=== PATIENT | female | born 1935 | race Caucasian/White ===

== ENCOUNTER 2021-06-21 15:59 | Emergency (ER) | payer MEDICARE, OTHER ==
[~2021-06-21] VITALS: Ht 162.6 cm; Wt 81.6 kg
--- NOTE | 2021-06-21 16:03 | ED General ---
General Stated Complaint: ELEV BP History of Present Illness Date Seen by Provider: Jun 21, 2021 Time Seen by Provider: 16:03 Initial Comments 85-year-old female brought in with elevated blood pressure and feeling of confusion. Patient reports that around noon she is started to get out of bed confused and having concentration issues. Patient family reports that they checked her blood pressure is elevated over 200. She denies any cough, fever, chills. She does have a mild headache. She reports that she takes blood pressu re medication and took them this morning as prescribed. Patient also reports she has a history of frequent urinary tract infections. Patient's confusion is just kind of difficulty with short-term memory Allergies and Home Medications Allergies Coded Allergies: No Known Drug Allergies (Unverified , 06/21/21) Patient Home Medication List Home Medication List Reviewed: Yes Cephalexin (Cephalexin) 500 Mg Tablet, 500 MG PO QID Prescribed by: KEILA STEARNS on 06/21/21 172 Ondansetron (Ondansetron Odt) 4 Mg Tab.rapdis, 4 MG PO Q6H PRN for NAUSEA/VOMITING Prescribed by: KEILA STEARNS on 06/21/21 172 Prednisone (Prednisone) 20 Mg Tab, 40 MG PO DAILY Prescribed by: KEILA STEARNS on 06/21/21 1729 Review of Systems Review of Systems Constitutional: see HPI; No chills, No fever EENTM: no symptoms reported Respiratory: no symptoms reported Cardiovascular: no symptoms reported Gastrointestinal: no symptoms reported Genitourinary: no symptoms reported Musculoskeletal: no symptoms reported Psychiatric/Neurological: See HPI Hematologic/Lymphatic: No Symptoms Reported Immunological/Allergic: no symptoms reported Physical Exam Vital Signs Vital Signs - First Documented 06/21/21 16:05 Temp 36.8 Pulse 86 Resp 18 B/P (MAP) 242/90 (140) Pulse Ox 97 O2 Delivery Room Air Capillary Refill : Height, Weight, BMI Height: '" Weight: lbs. oz. kg; BMI Method: General Appearance: No Apparent Distress, WD/WN Eyes: Bilateral Eye Normal Inspection, Bilateral Eye PERRL HEENT: Moist Mucous Membranes Neck: Non Tender, Supple Respiratory: Lungs Clear, Normal Breath Sounds, No Accessory Muscle Use Cardiovascular: Regular Rate, Rhythm, No Edema Gastrointestinal: Non Tender, Soft Extremity: Normal Capillary Refill, Normal Inspection Neurologic/Psychiatric: Alert, Oriented x3, No Motor/Sensory Deficits, Normal Mood/Affect, political reporter II-XII Norm as Tested, Other (pt answered that "she was at home, yr 2021, month may" ) Skin: Normal Color, Warm/Dry Progress/Results/Core Measures Suspected Sepsis SIRS Temperature: Pulse: Respiratory Rate: Laboratory Tests 06/21/21 16:15: White Blood Count 10.6 Blood Pressure / Mean: Laboratory Tests 06/21/21 16:15: Creatinine 0.79, INR Comment 2.2H, Platelet Count 338, Total Bilirubin 0.3 Results/Orders Lab Results Laboratory Tests Test 06/21/21 16:15 06/21/21 16:23 Range/Units White Blood Count 10.6 4.3-11.0 10^3/uL Red Blood Count 4.64 3.80-5.11 10^6/uL Hemoglobin 13.9 11.5-16.0 g/dL Hematocrit 42 35-52 % Mean Corpuscular Volume 90 80-99 fL Mean Corpuscular Hemoglobin 30 25-34 pg Mean Corpuscular Hemoglobin Concent 33 32-36 g/dL Red Cell Distribution Width 12.8 10.0-14.5 % Platelet Count 338 130-400 10^3/uL Mean Platelet Volume 10.2 9.0-12.2 fL Immature Granulocyte % (Auto) 2 % Neutrophils (%) (Auto) 65 42-75 % Lymphocytes (%) (Auto) 21 12-44 % Monocytes (%) (Auto) 8 0-12 % Eosinophils (%) (Auto) 3 0-10 % Basophils (%) (Auto) 1 0-10 % Neutrophils # (Auto) 6.9 1.8-7.8 X 10^3 Lymphocytes # (Auto) 2.2 1.0-4.0 X 10^3 Monocytes # (Auto) 0.9 0.0-1.0 X 10^3 Eosinophils # (Auto) 0.3 0.0-0.3 10^3/uL Basophils # (Auto) 0.1 0.0-0.1 10^3/uL Immature Granulocyte # (Auto) 0.2 H 0.0-0.1 10^3/uL Erythrocyte Sedimentation Rate 50 H 0-30 MM/HR Prothrombin Time 24.8 H 12.2-14.7 SEC INR Comment 2.2 H 0.8-1.4 Activated Partial Thromboplast Time 59 H 24-35 SEC Sodium Level 133 L 135-145 MMOL/L Potassium Level 5.0 3.6-5.0 MMOL/L Chloride Level 98 98-107 MMOL/L Carbon Dioxide Level 24 21-32 MMOL/L Anion Gap 11 5-14 MMOL/L Blood Urea Nitrogen 20 H 7-18 MG/DL Creatinine 0.79 0.60-1.30 MG/DL Estimat Glomerular Filtration Rate 69 BUN/Creatinine Ratio 25 Glucose Level 176 H 70-105 MG/DL Calcium Level 10.1 8.5-10.1 MG/DL Corrected Calcium 9.8 8.5-10.1 MG/DL Magnesium Level 1.6 1.6-2.4 MG/DL Total Bilirubin 0.3 0.1-1.0 MG/DL Aspartate Amino Transf (AST/SGOT) 19 5-34 U/L Alanine Aminotransferase (ALT/SGPT) 17 0-55 U/L Alkaline Phosphatase 54 40-136 U/L Total Protein 7.5 6.4-8.2 GM/DL Albumin 4.4 3.2-4.5 GM/DL Urine Color YELLOW Urine Clarity CLOUDY Urine pH 6.0 5-9 Urine Specific [place] 1.010 L 1.016-1.022 Urine Protein NEGATIVE NEGATIVE Urine Glucose (UA) NEGATIVE NEGATIVE Urine Ketones NEGATIVE NEGATIVE Urine Nitrite POSITIVE H NEGATIVE Urine Bilirubin NEGATIVE NEGATIVE Urine Urobilinogen 0.2 < = 1.0 MG/DL Urine Leukocyte Esterase 2+ H NEGATIVE Urine RBC (Auto) NEGATIVE NEGATIVE Urine RBC NONE /HPF Urine WBC 50-100 H /HPF Urine Squamous Epithelial Cells 10-25 H /HPF Urine Crystals NONE /LPF Urine Bacteria MODERATE H /HPF Urine Casts NONE /LPF Urine Mucus NEGATIVE /LPF Urine Culture Indicated YES My Orders Orders - STEARNS,KEILA L DO Ct Head Wo-R/O Stroke (06/21/21 16:09) Cbc With Automated Diff (06/21/21 16:09) Comprehensive Metabolic Panel (06/21/21 16:09) Magnesium (06/21/21 16:09) Protime With Inr (06/21/21 16:09) Partial Thromboplastin Time (06/21/21 16:09) Ua Culture If Indicated (06/21/21 16:09) Erythrocyte Sedimentation Rate (06/21/21 16:09) Ekg Tracing (06/21/21 16:09) Monitor-Rhythm Ecg Trace Only (06/21/21 16:09) Chest 1 View Ap/Pa Only (06/21/21 16:09) Urine Culture (06/21/21 16:23) Hs C Reactive Protein (06/21/21 16:15) Ondansetron Injection (Zofran Injectio (06/21/21 17:15) Labetalol Injection (Normodyne Injection (06/21/21 17:15) Ondansetron Injection (Zofran Injectio (06/21/21 17:06) Ketorolac Injection (Toradol Injection) (06/21/21 17:17) Prednisone Tablet (Deltasone Tablet) (06/21/21 17:30) Ceftriaxone (Rocephin) (06/21/21 17:30) Medications Given in ED Current Medications Medications Dose Ordered Sig/Jatin Route Start Time Stop Time Status Last Admin Dose Admin Labetalol HCl 20 mg ONCE ONCE IV 06/21/21 17:15 06/21/21 17:16 DC 06/21/21 17:20 20 MG Ondansetron HCl 4 mg ONCE ONCE IVP 06/21/21 17:15 06/21/21 17:16 DC 06/21/21 17:09 4 MG Vital Signs/I&O 06/21/21 16:05 Temp 36.8 Pulse 86 Resp 18 B/P (MAP) 242/90 (140) Pulse Ox 97 O2 Delivery Room Air Capillary Refill : Progress Note : Progress Note Patient with multiple different etiologies that could be causing her headache and high blood pressure. She could have labile blood pressure that is elevated causing a headache and nausea vomiting. Patient also has headache on the left side with some mild temporal pain with an ESR of 50. She may have early giant cell arteritis. Patient also has a urine that is suspicious for a possible UTI which could contribute to the headache or not feeling well which could result in the high blood pressure. I will treat her with an antibiotic, prednisone and give her nausea medication. I asked her to follow-up with her primary care provider in 2 to 3 days for recheck to see how her symptoms are doing and further outpatient evaluation as needed. Patient was stable and discharged home. ECG Initial ECG Impression Date: Jun 21, 2021 Initial ECG Impression Time: 16:29 Initial ECG Rate: 81 Initial ECG Rhythm: Normal Sinus Initial ECG Intervals: MO (242) Initial ECG Impression: Nonspecific Changes Initial ECG Comparisson: No Previous ECG Available Comment sinus rhyhm, prolonged MO, no acute st elevation or changes. Diagnostic Imaging Diagonstic Imaging: CT Plain Films/CT/US/NM/MRI: head Comments Date of Exam:06/21/21 CT HEAD WO-R/O STROKE PROCEDURE: CT head w/o r/o stroke. TECHNIQUE: Multiple contiguous axial images were obtained through the brain without the use of intravenous contrast. Auto Exposure Controls were utilized during the CT exam to meet ALARA standards for radiation dose reduction. INDICATION: Headache. Confusion. Altered mental status. COMPARISON: None. FINDINGS: Moderate generalized parenchymal volume loss is age appropriate. No intracranial hemorrhage, mass effect, hydrocephalus or extra-axial fluid collection. No CT evidence of a territorial infarction. Osseous structures are intact. Visualized paranasal sinuses and mastoids are unremarkable. IMPRESSION: No acute intracranial CT finding. Reviewed: Reviewed by Me, Reviewed/Discussed Diagonstic Imaging: Xray Plain Films/CT/US/NM/MRI: chest Comments Date of Exam:06/21/21 CHEST 1 VIEW AP/PA ONLY INDICATION: Hypertension, confusion. COMPARISON: None available. TECHNIQUE: Single radiograph of the chest dated June 21, 2021. FINDINGS: The cardiac silhouette is within normal limits in size. No significant pulmonary vascular congestion. Senescent changes of the lungs are identified without additional focal pulmonary opacity. No pleural effusion. No pneumothorax. No acute osseous abnormality. IMPRESSION: Senescent changes of the lungs without superimposed acute cardiopulmonary abnormality. Reviewed: Reviewed by Me, Reviewed/Discussed Departure Impression Primary Impression: Elevated erythrocyte sedimentation rate Additional Impressions: Hypertension Qualified Codes: I10 - Essential (primary) hypertension Urinary tract infection Qualified Codes: N30.00 - Acute cystitis without hematuria Disposition: HOME, SELF-CARE Condition: Stable Departure-Patient Inst. Referrals: KARTHIK AGUIRRE MD (PCP/Family) Primary Care Physician Patient Instructions: Erythrocyte Sedimentation Rate, High Blood Pressure in Adults, Urinary Tract Infection, Adult ED Add. Discharge Instructions: Please follow-up with your primary care provider in 2 to 3 days for recheck of your symptoms. Start your steroid tomorrow morning Start your antibiotics today. Scripts Prednisone (Prednisone) 20 Mg Tab 40 MG PO DAILY, #6 TAB 0 Refills Prov: KEILA STEARNS DO 06/21/21 Ondansetron (Ondansetron Odt) 4 Mg Tab.rapdis 4 MG PO Q6H PRN for NAUSEA/VOMITING, #20 TAB 0 Refills Prov: KEILA STEARNS DO 06/21/21 Cephalexin (Cephalexin) 500 Mg Tablet 500 MG PO QID, #20 TAB 0 Refills Prov: KEILA STEARNS DO 06/21/21 KEILA STEARNS DO Jun 21, 2021 16:03
--- OUTSIDE RECORDS SUMMARY | 2021-06-21 16:04 | XMS REPORT | Clinical Summary ---
Author Author [facility] Organization [facility] Address Unknown Phone Unavailable Care Team Providers Care [employer] Name Role Phone Tyler Kumar MD PCP Allergies No Known Active Allergies Medications End Date Status Medication Sig Dispensed Refills Start Date Active metformin (GLUCOPHAGE) Take 500 mg 0 500 mg tablet by mouth 2 (two) times a day with meals. Active omeprazole (PRILOSEC) 20 Take 20 mg by 0 MG capsule mouth daily. Active warfarin (COUMADIN) 5 MG Take 5 mg by 0 tablet mouth. Taken Tuesday, Tuesday, , and Tuesday Active warfarin (COUMADIN) 2.5 Take 2.5 mg 0 MG tablet by mouth. Taken Tuesday, Tuesday, and Tuesday Active spironolactone Take 25 mg by 0 (ALDACTONE) 25 MG tablet mouth daily. Active flecainide (TAMBOCOR) 50 Take 50 mg by 0 MG tablet mouth 2 (two) times a day. Active losartan (COZAAR) 100 MG Take 100 mg 0 tablet by mouth daily. Active metoprolol succinate Take 25 mg by 0 (TOPROL-XL) 25 MG 24 hr mouth daily. tablet Active Problems Problem Noted Date Essential hypertension Last Assessment & Plan: Formatting of this note might be differ ent from the original. BP low Holding all PO meds in setting of GI bl eed Atrial fibrillation Last Assessment & Plan: Formatting of this note might be differ ent from the original. HR controlled Holding warfarin Type 2 diabetes mellitus without compli cation, without long-term current use of insulin Last Assessment & Plan: Formatting of this note might be differ ent from the original. Hold PO meds SSI for now Hematochezia Last Assessment & Plan: Formatting of this note might be differ ent from the original. BRBPR x [address] abd/pelv with significant colonic di verticulosis most predominant within the sigmoid colon. There is contrast vi sualized within the proximal sigmoid colon/descending colon consistent with GI bleed. INR 3.6. s/p vit K in the ED. May need FFP if co ntinues to bleed Hgb 8.9, unknown baseline Will transfuse 1 unit pRBC due to low B P and symptoms GI consulted, plan for urgent prep and colonoscopy IVF Monitor in the ICU If continues to bleed, will need tagged RBC scan and IR consult Social History Date Tobacco Use Types Packs/Day Years Used Never Smoker Smokeless Tobacco: Never Used Comments Alcohol Use Standard Drinks/Week Not Currently 0 (1 standard drink = 0.6 o z pure alcohol) Food Insecurity Answer Date Recorded Within the past 12 months, you worried that your Never matt e 09/29/2019 food would run out before you got money to buy more. Within the past 12 months, the food you bought Never true 09/29/2019 just didn't last and you didn't have mo kb to get more. Transportation Needs Answer Date Recorded In the past 12 months, has lack of transportation No 09/29/2019 kept you from medical appointments or f rom getting medications? In the past 12 months, has lack of transportation No 09/29/2019 kept you from meetings, work, or gettin g things needed for daily living? Sex Assigned at Date Recorded Not on file Last Filed Vital Signs Reading Time Taken Comments Vital Sign 162/43 10/01/2019 11:18 AM [employer] Blood Pressure 68 10/01/2019 11:18 AM [employer] Pulse 36.7 C (98.1 F) 10/01/2019 11:18 AM [employer] Temperature 18 10/01/2019 11:18 AM [employer] Respiratory Rate 98% 10/01/2019 11:18 AM [employer] Oxygen Saturation - - Inhaled Oxygen Concentration 84.5 kg (186 lb 4.8 oz) 10/01/2019 4:04 AM [employer] Weight 162.6 cm (5' 4.02") 09/28/2019 1:31 PM [employer] Height 31.96 09/28/2019 1:31 PM [employer] Body Mass Index Plan of Treatment Health Maintenance Due Date Last Done Comments Advance Directive has 1936 been filed Diabetes Mellitus 1936 Hemoglobin A1C Diabetes Mellitus 1936 Ophthalmology Exam Lipid Screening 1936 Td/Tdap# 1936 Pneumococcal Vaccine: 65+ 1942 01/03/2015 Years (1 of 2 - PPSV23) Diabetes Mellitus Foot 1946 Exam COVID-19 Vaccine (1) 1948 Zoster Vaccine# (1 of 2) 1986 Advance Directive 2001 Conversation Osteoporosis Screening 2001 Patient Needs Advance 2001 Directive Fall Risk Assessment # 10/01/2020 10/01/2019 Influenza Vaccine (#1) 2021 08/22/2019, 07/10/2014, 07/12/2013, Additional history exists Results Not on filefrom Last 3 Months Advance Directives For more information, please contact: [phone] Patient [employer] Explanation Type Date Recorded Health Care Directive Date Inactivated Comments Code Status Date Activated 10/01/2019 2:54 PM DNR 09/28/2019 9:10 AM
[2021-06-21 16:28] LABS: BASOPHILS % (AUTO) 1 % (0-10); EOSINOPHILS # (AUTO) 0.3 10^3/uL (0.0-0.3); EOSINOPHILS % (AUTO) 3 % (0-10); HEMATOCRIT 42 % (35-52); HEMOGLOBIN 13.9 g/dL (11.5-16.0); LYMPHOCYTES # (AUTO) 2.2 X 10^3 (1.0-4.0); LYMPHOCYTES % (AUTO) 21 % (12-44); MEAN CORPUSCULAR HEMOGLOBIN 30 pg (25-34); MEAN CORPUSCULAR HGB CONC 33 g/dL (32-36); MEAN CORPUSCULAR VOLUME 90 fL (80-99); MEAN PLATELET VOLUME 10.2 fL (9.0-12.2); MONOCYTES # (AUTO) 0.9 X 10^3 (0.0-1.0); MONOCYTES % (AUTO) 8 % (0-12); NEUTROPHILS # (AUTO) 6.9 X 10^3 (1.8-7.8); NEUTROPHILS % (AUTO) 65 % (42-75); PLATELET COUNT 338 10^3/uL (130-400); WHITE BLOOD COUNT 10.6 10^3/uL (4.3-11.0)
[2021-06-21 16:29] LABS: BASOPHILS # (AUTO) 0.1 10^3/uL (0.0-0.1)
[2021-06-21 16:34] LABS: INR 2.2 (0.8-1.4); PROTHROMBIN TIME PATIENT 24.8 SEC (12.2-14.7)
[2021-06-21 16:35] LABS: BILIRUBIN,URINE NEGATIVE (NEGATIVE); CLARITY,URINE CLOUDY; COLOR,URINE YELLOW; GLUCOSE, URINE (UA) NEGATIVE (NEGATIVE); KETONES,URINE NEGATIVE (NEGATIVE); LEUKOCYTE ESTERASE ,URINE 2+ (NEGATIVE); NITRITE,URINE POSITIVE (NEGATIVE); PROTEIN,URINE NEGATIVE (NEGATIVE)
[2021-06-21 16:35] LABS: ERYTHROCYTE SEDIMENTATION RATE 50 MM/HR (0-30)
[2021-06-21 16:36] LABS: BACTERIA,URINE MODERATE /HPF; WBC,URINE 50-100 /HPF
[2021-06-21 16:41] LABS: BILIRUBIN,TOTAL 0.3 MG/DL (0.1-1.0); CALCIUM 10.1 MG/DL (8.5-10.1); CREATININE SERUM 0.79 MG/DL (0.60-1.30); MAGNESIUM 1.6 MG/DL (1.6-2.4)
[2021-06-21 16:42] LABS: ALBUMIN 4.4 GM/DL (3.2-4.5); TOTAL PROTEIN 7.5 GM/DL (6.4-8.2)
[2021-06-21] MEDS ORDERED: ONDANSETRON 4 MG/2 ML (SDV) Z0FRAN ONE (17:06)
[2021-06-21] MEDS ORDERED: LABETALOL HCL 20 MG/4 ML VIAL IV ONE (17:15)
[2021-06-21] MEDS ORDERED: ONDANSETRON 4 MG/2 ML (SDV) Z0FRAN IVP ONE (17:15)
--- NOTE | 2021-06-21 17:15 | Diagnostic Imaging Report ---
PROCEDURE: CT head w/o r/o stroke. TECHNIQUE: Multiple contiguous axial images were obtained through the brain without the use of intravenous contrast. Auto Exposure Controls were utilized during the CT exam to meet ALARA standards for radiation dose reduction. INDICATION: Headache. Confusion. Altered mental status. COMPARISON: None. FINDINGS: Moderate generalized parenchymal volume loss is age appropriate. No intracranial hemorrhage, mass effect, hydrocephalus or extra-axial fluid collection. No CT evidence of a territorial infarction. Osseous structures are intact. Visualized paranasal sinuses and mastoids are unremarkable. IMPRESSION: No acute intracranial CT finding. Dictated by: Dictated on workstation # [id number]
--- NOTE | 2021-06-21 17:16 | Diagnostic Imaging Report ---
INDICATION: Hypertension, confusion. COMPARISON: None available. TECHNIQUE: Single radiograph of the chest dated June 21, 2021. FINDINGS: The cardiac silhouette is within normal limits in size. No significant pulmonary vascular congestion. Senescent changes of the lungs are identified without additional focal pulmonary opacity. No pleural effusion. No pneumothorax. No acute osseous abnormality. IMPRESSION: Senescent changes of the lungs without superimposed acute cardiopulmonary abnormality. Dictated by: Dictated on workstation # [id number]
[2021-06-21] MEDS ORDERED: KETOROLAC 30 MG/ML VIAL IVP STA (17:17)
[2021-06-21] MEDS ORDERED: PRD20T PO (17:29)
[2021-06-21] MEDS ORDERED: ONDA4TAB11 PO (17:29)
[2021-06-21] MEDS ORDERED: CEPH500T PO (17:29)
[2021-06-21] MEDS ORDERED: predniSONE 20 MG TAB PO ONE (17:30)
[2021-06-21] MEDS ORDERED: cefTRIAXone 1,000 MG in WATER (STERILE) FOR INJECTION 10 ML IV ONE (17:30)
[2021-06-21 18:15] VITALS: BP 175/40
== END 2021-06-21 18:15 | disposition home or self-care (01) ==
LOC: ER FS 16:01
DX: R70.0 Elevated erythrocyte sedimentation rate (principal); I10 Essential (primary) hypertension; N39.0 Urinary tract infection, site not specified
CPT/HCPCS: 36415; 70450; 71045; 80053; 81000; 83735; 85025; 85610; 85652; 85730; 86141; 87077; 87088; 87184; 87186; 93005; 93041

== ENCOUNTER 2023-05-21 19:13 | Emergency (ER) | payer MEDICARE ==
[~2023-05-21] VITALS: Ht 162.5 cm; Wt 77.8 kg
[~2023-05-21 19:13] MED LIST: CEPH500T PO; ONDA4TAB11 PO; PRD20T PO
[2023-05-21 19:29] LABS: BASOPHILS # (AUTO) 0.1 10^3/uL (0.0-0.1); BASOPHILS % (AUTO) 1 % (0-10); EOSINOPHILS % (AUTO) 8 % (0-10); HEMATOCRIT 43 % (35-52); LYMPHOCYTES # (AUTO) 2.7 10^3/uL (1.0-4.0); LYMPHOCYTES % (AUTO) 22 % (12-44); MEAN CORPUSCULAR HEMOGLOBIN 28 pg (25-34); MEAN CORPUSCULAR HGB CONC 33 g/dL (32-36); MEAN CORPUSCULAR VOLUME 86 fL (80-99); MEAN PLATELET VOLUME 9.7 fL (9.0-12.2); MONOCYTES # (AUTO) 1.1 10^3/uL (0.0-1.0); MONOCYTES % (AUTO) 9 % (0-12); NEUTROPHILS # (AUTO) 7.1 10^3/uL (1.8-7.8); NEUTROPHILS % (AUTO) 58 % (42-75); PLATELET COUNT 357 10^3/uL (130-400); WHITE BLOOD COUNT 12.2 10^3/uL (4.3-11.0)
--- NOTE | 2023-05-21 19:36 | ED General ---
General Stated Complaint: LOSS OF VISION , CONFUSION History of Present Illness Date Seen by Provider: May 21, 2023 Time Seen by Provider: 19:17 Initial Comments 87-year-old female with PMH of A-fib/DM2/HTN, is here with complaints of momentary loss of vision and confusion which occurred around 4:30 PM today afternoon. Patient's states that the confusion lasted for approximately 45 minutes or so. Patient presents to the ER approximately 2 and half hours later. Patient initially went to the clinic at [place] and was told that she should come to the ER to get a CT scan to rule out a TIA or a stroke. Patient denies any symptoms right now and has no vision issues or confusion in the ER. Denies weakness, speech issues, dysuria, abdominal pain, fever and chills, URI symptoms, chest pain, dizziness. Allergies and Home Medications Allergies Coded Allergies: No Known Drug Allergies (Unverified , 06/21/21) Patient Home Medication List Home Medication List Reviewed: Yes Cephalexin (Cephalexin) 500 Mg Tablet, 500 MG PO QID Prescribed by: KEILA STEARNS on 06/21/211728 Ondansetron (Ondansetron Odt) 4 Mg Tab.rapdis, 4 MG PO Q6H PRN for PHILLIP SEA/VOMITING Prescribed by: KEILA STEARNS on 06/21/211728 Prednisone (Prednisone) 20 Mg Tab, 40 MG PO DAILY Prescribed by: KEILA STEARNS on 06/21/211728 Review of Systems Review of Systems Constitutional: no symptoms reported EENTM: see HPI, blurred vision (resolved) Respiratory: no symptoms reported Cardiovascular: no symptoms reported Gastrointestinal: no symptoms reported Genitourinary: no symptoms reported Musculoskeletal: no symptoms reported Psychiatric/Neurological: See HPI, Other (confusion, resolved) Past Iifcjtr-Xrjyti-Ktrqyj Hx Immunizations Up To Date First/Initial COVID19 Vaccinat: 2020 Second COVID19 Vaccination Sukhwinder: 2020 Physical Exam Vital Signs Vital Signs - First Documented 05/21/23 19:16 Temp 36.9 Pulse 72 Resp 16 B/P (MAP) 207/67 (113) Pulse Ox 95 O2 Delivery Room Air Capillary Refill : Height, Weight, BMI Height: '" Weight: lbs. oz. kg; 30.00 BMI Method: General Appearance: No Apparent Distress, WD/WN Eyes: Bilateral Eye Normal Inspection, Bilateral Eye PERRL, Bilateral Eye EOMI HEENT: PERRL/EOMI, Normal ENT Inspection Neck: Full Range of Motion, Normal Inspection, Non Tender, Supple Respiratory: Chest Non Tender, Lungs Clear, Normal Breath Sounds Cardiovascular: Regular Rate, Rhythm, No Edema Gastrointestinal: Normal Bowel Sounds, Non Tender, Soft Back: Normal Inspection, No Vertebral Tenderness Neurologic/Psychiatric: Alert, Oriented x3, No Motor/Sensory Deficits, Normal Mood/Affect, director sales support II-XII Norm as Tested Skin: Normal Color Progress/Results/Core Measures Suspected Sepsis SIRS Temperature: Pulse: Respiratory Rate: Laboratory Tests 05/21/23 19:22: White Blood Count 12.2H Blood Pressure / Mean: Laboratory Tests 05/21/23 19:22: Creatinine 0.75, INR Comment 1.7H, Platelet Count 357, Total Bilirubin 0.2 Results/Orders Lab Results Laboratory Tests Test 05/21/23 19:22 05/21/23 19:39 Range/Units White Blood Count 12.2 H 4.3-11.0 10^3/uL Red Blood Count 4.98 3.80-5.11 10^6/uL Hemoglobin 14.0 11.5-16.0 g/dL Hematocrit 43 35-52 % Mean Corpuscular Volume 86 80-99 fL Mean Corpuscular Hemoglobin 28 25-34 pg Mean Corpuscular Hemoglobin Concent 33 32-36 g/dL Red Cell Distribution Width 13.0 10.0-14.5 % Platelet Count 357 130-400 10^3/uL Mean Platelet Volume 9.7 9.0-12.2 fL Immature Granulocyte % (Auto) 1 % Neutrophils (%) (Auto) 58 42-75 % Lymphocytes (%) (Auto) 22 12-44 % Monocytes (%) (Auto) 9 0-12 % Eosinophils (%) (Auto) 8 0-10 % Basophils (%) (Auto) 1 0-10 % Neutrophils # (Auto) 7.1 1.8-7.8 10^3/uL Lymphocytes # (Auto) 2.7 1.0-4.0 10^3/uL Monocytes # (Auto) 1.1 H 0.0-1.0 10^3/uL Eosinophils # (Auto) 1.0 H 0.0-0.3 10^3/uL Basophils # (Auto) 0.1 0.0-0.1 10^3/uL Immature Granulocyte # (Auto) 0.2 H 0.0-0.1 10^3/uL Prothrombin Time 20.4 H 12.2-14.7 SEC INR Comment 1.7 H 0.8-1.4 Activated Partial Thromboplast Time 36 H 24-35 SEC Sodium Level 134 L 135-145 MMOL/L Potassium Level 4.6 3.6-5.0 MMOL/L Chloride Level 98 98-107 MMOL/L Carbon Dioxide Level 22 21-32 MMOL/L Anion Gap 14 5-14 MMOL/L Blood Urea Nitrogen 21 H 7-18 MG/DL Creatinine 0.75 0.60-1.30 MG/DL Estimat Glomerular Filtration Rate 77 BUN/Creatinine Ratio 28 Glucose Level 151 H 70-105 MG/DL Calcium Level 10.5 H 8.5-10.1 MG/DL Corrected Calcium 10.5 H 8.5-10.1 MG/DL Magnesium Level 1.7 1.6-2.4 MG/DL Total Bilirubin 0.2 0.1-1.0 MG/DL Aspartate Amino Transf (AST/SGOT) 12 5-34 U/L Alanine Aminotransferase (ALT/SGPT) 13 0-55 U/L Alkaline Phosphatase 65 40-136 U/L Troponin I < 0.30 <0.30 NG/ML Total Protein 7.2 6.4-8.2 GM/DL Albumin 4.0 3.2-4.5 GM/DL Urine Color YELLOW Urine Clarity CLEAR Urine pH 6.0 5-9 Urine Specific [place] 1.020 1.016-1.022 Urine Protein NEGATIVE NEGATIVE Urine Glucose (UA) NEGATIVE NEGATIVE Urine Ketones NEGATIVE NEGATIVE Urine Nitrite NEGATIVE NEGATIVE Urine Bilirubin NEGATIVE NEGATIVE Urine Urobilinogen 0.2 < = 1.0 MG/DL Urine Leukocyte Esterase 1+ H NEGATIVE Urine RBC (Auto) NEGATIVE NEGATIVE Urine RBC 2-5 H /HPF Urine WBC 25-50 H /HPF Urine Squamous Epithelial Cells >50 H /HPF Urine Crystals NONE /LPF Urine Bacteria FEW H /HPF Urine Casts NONE /LPF Urine Mucus NEGATIVE /LPF Urine Culture Indicated NO My Orders Orders - KARLEY SHEARER MD Continuous Ekg Monitoring (05/21/23 19:24) Ekg Tracing (05/21/23 19:24) Cbc With Automated Diff (05/21/23 19:24) Comprehensive Metabolic Panel (05/21/23 19:24) Magnesium (05/21/23 19:24) Protime With Inr (05/21/23 19:24) Partial Thromboplastin Time (05/21/23 19:24) Ua Culture If Indicated (05/21/23 19:24) Troponin I Fs (05/21/23 19:24) Chest 1 View Ap/Pa Only (05/21/23 19:25) Ct Head Wo-R/O Stroke (05/21/23 19:26) Ed Iv/Invasive Line Start (05/21/23 19:35) Monitor-Rhythm Ecg Trace Only (05/21/23 19:35) Vital Signs/I&O 05/21/23 19:16 Temp 36.9 Pulse 72 Resp 16 B/P (MAP) 207/67 (113) Pulse Ox 95 O2 Delivery Room Air Capillary Refill : Progress Note : Progress Note 1. STROKE WORK UP NEGATIVE - CT HEAD: no acute findings -CXR: no acute findings - CBC/CMP: WBC is 12.2 without a left shift, due to the UTI - UA: Positive for leukocyte esterase, RBC, bacteria, WBC - Troponin: undetectable - EKG:non-ischemic -Nitrofurantoin prescription given, 100 mg twice daily for 7 days, with first t ablet given in ER -Adequate hydration advised - Follow up with PCP in 7 days, as needed -Patient has no symptoms in the ER and her vitals are stable. Patient has an elevated blood pressure which improved to 150s over 90 in the ER, but she did not take her evening BP medications yet and will take it once she reaches home. -The patient was seen in the ED, and treated appropriately to presentation at a specific point in time. Patient is informed that there is a possibility that disease and illness can evolve and change in acuity rapidly or slowly after patient is discharged from the ER. Precautionary advice given to the patient for immediate return to ER if symptoms worsen or do not resolve, and to seek emergency care sooner rather than later. Pt also advised on the importance of PCP follow up and compliance with management and follow up plan with PCP and/or specialist, as this is part of the management plan. Pt verbally expressed understanding. ECG Initial ECG Impression Date: May 21, 2023 Initial ECG Impression Time: 19:26 Initial ECG Rate: 67 Initial ECG Rhythm: Normal Sinus Initial ECG Impression: 1st Degree AV Block Initial ECG Comparisson: No Previous ECG Available Diagnostic Imaging Diagonstic Imaging: Xray, CT Plain Films/CT/US/NM/MRI: chest, head Comments [facility] [place], [place] NAME: PEDRO JACINTO [facility] REC#: [id number] PT STATUS: REG ER : 1935 PHYSICIAN: KARLEY SHEARER MD ADMIT DATE: 05/21/23/ER FS Draft Date of Exam:05/21/23 CHEST 1 VIEW AP/PA ONLY EXAM: Chest 1 view AP/PA only INDICATION: Altered mental status. Confusion. COMPARISON: 06/21/2021. FINDINGS: Normal heart size and central pulmonary vascularity. Calcified granulomas in the right lung base. No pleural effusion or pneumothorax. Hyperinflation. No acute osseous finding. IMPRESSION: COPD. No acute cardiopulmonary finding. Dictated on workstation # [id number] Dict: 05/21/231946 Trans: 05/21/231958 [facility] [id number] Interpreted by: AROLDO DC MD Electronically signed by: [facility] [place] NAME: PEDRO JACINTO [facility] REC#: [id number] PT STATUS: REG ER : 1935 PHYSICIAN: KARLEY SHEARER MD ADMIT DATE: 05/21/23/ER FS Draft Date of Exam:05/21/23 CT HEAD WO-R/O STROKE PROCEDURE: CT head w/o r/o stroke. TECHNIQUE: Multiple contiguous axial images were obtained through the brain without the use of intravenous contrast. Auto Exposure Controls were utilized during the CT exam to meet ALARA standards for radiation dose reduction. INDICATION: Stroke. Altered mental status. Memory loss. COMPARISON: CT head without contrast 06/21/2021. FINDINGS: Moderate generalized parenchymal volume loss. No intracranial hemorrhage, mass effect, hydrocephalus or extra-axial fluid collection. No CT evidence of a territorial infarction. Frothy secretions in the right maxillary sinus. The mastoids are clear. No fracture. IMPRESSION: 1. No acute intracranial CT finding. No evidence of acute infarction or hemorrhage. 2. Frothy secretions in the right maxillary sinus. Dictated on workstation # [id number] Dict: 05/21/231942 Trans: 05/21/231946 [facility] [phone] Interpreted by: AROLDO DC MD Electronically signed by: Departure Impression Primary Impression: Acute cystitis with hematuria Disposition: HOME, SELF-CARE Condition: Stable Departure-Patient Inst. Referrals: KARTHIK AGUIRRE MD (PCP/Family) Primary Care Physician Patient Instructions: Acute Cystitis (DC), Urinary Tract Infection, Adult (DC) Add. Discharge Instructions: - Prescription given for Nitrofurantoin 100mg bid for 7 days. - Adequate hydration advised, at least 8 glasses of water/ day. Scripts Nitrofurantoin Macrocrystal (Nitrofurantoin) 100 Mg Capsule 100 MG PO BID for 7 Days, #14 CAP Prov: KARLEY SHEARER MD 05/21/23 KARLEY SHEARER MD May 21, 2023 19:36
[2023-05-21 19:38] LABS: INR 1.7 (0.8-1.4); PROTHROMBIN TIME PATIENT 20.4 SEC (12.2-14.7)
[2023-05-21 19:47] LABS: ALANINE AMINOTRANSFERASE 13 U/L (0-55); ALKALINE PHOSPHATASE 65 U/L (40-136); BILIRUBIN,TOTAL 0.2 MG/DL (0.1-1.0); BUN/CREATININE RATIO 28; CALCIUM 10.5 MG/DL (8.5-10.1); CARBON DIOXIDE 22 MMOL/L (21-32); CHLORIDE 98 MMOL/L (98-107); CREATININE SERUM 0.75 MG/DL (0.60-1.30); GFR ESTIMATED 77; GLUCOSE 151 MG/DL (70-105); MAGNESIUM 1.7 MG/DL (1.6-2.4); POTASSIUM 4.6 MMOL/L (3.6-5.0); SODIUM 134 MMOL/L (135-145); TOTAL PROTEIN 7.2 GM/DL (6.4-8.2)
--- NOTE | 2023-05-21 19:47 | Diagnostic Imaging Report ---
PROCEDURE: CT head w/o r/o stroke. TECHNIQUE: Multiple contiguous axial images were obtained through the brain without the use of intravenous contrast. Auto Exposure Controls were utilized during the CT exam to meet ALARA standards for radiation dose reduction. INDICATION: Stroke. Altered mental status. Memory loss. COMPARISON: CT head without contrast 06/21/2021. FINDINGS: Moderate generalized parenchymal volume loss. No intracranial hemorrhage, mass effect, hydrocephalus or extra-axial fluid collection. No CT evidence of a territorial infarction. Frothy secretions in the right maxillary sinus. The mastoids are clear. No fracture. IMPRESSION: 1. No acute intracranial CT finding. No evidence of acute infarction or hemorrhage. 2. Frothy secretions in the right maxillary sinus. Dictated by: Dictated on workstation # [id number]
[2023-05-21 19:48] LABS: BILIRUBIN,URINE NEGATIVE (NEGATIVE); CLARITY,URINE CLEAR; COLOR,URINE YELLOW; GLUCOSE, URINE (UA) NEGATIVE (NEGATIVE); KETONES,URINE NEGATIVE (NEGATIVE); LEUKOCYTE ESTERASE ,URINE 1+ (NEGATIVE); NITRITE,URINE NEGATIVE (NEGATIVE); PROTEIN,URINE NEGATIVE (NEGATIVE)
[2023-05-21 19:52] LABS: BACTERIA,URINE FEW /HPF; SQUAMOUS EPITHELIAL CELL,UR >50 /HPF; WBC,URINE 25-50 /HPF
[2023-05-21] MEDS ORDERED: NITROFURANTOIN 100 MG (MACROBID) CAPSULE PO ONE ×2 (20:00→20:04)
--- NOTE | 2023-05-21 20:00 | Diagnostic Imaging Report ---
EXAM: Chest 1 view AP/PA only INDICATION: Altered mental status. Confusion. COMPARISON: 06/21/2021. FINDINGS: Normal heart size and central pulmonary vascularity. Calcified granulomas in the right lung base. No pleural effusion or pneumothorax. Hyperinflation. No acute osseous finding. IMPRESSION: COPD. No acute cardiopulmonary finding. Dictated by: Dictated on workstation # [id number]
[2023-05-21] MEDS ORDERED: NITR100C PO (20:06)
[2023-05-21 20:12] VITALS: BP 148/98
== END 2023-05-21 20:13 | disposition home or self-care (01) ==
LOC: EDUNIT# 19:13 → ER FS 19:16
DX: N30.01 Acute cystitis with hematuria (principal)
CPT/HCPCS: 36415; 70450; 71045; 80053; 81000; 83735; 84484; 85025; 85610; 85730; 93005; 93041